=== PATIENT | male | born 1950 | race Caucasian/White ===

== ENCOUNTER 2023-03-11 14:00 | Outpatient (RCR) | payer OTHER, SELFPAY | END 2023-03-11 23:59 | disposition home or self-care (01) | LOC: RPT 14:00 | PROVIDERS: ATTENDING PHYSICIAN Psychiatry & Neurology Behavioral Neurology & Neuropsychiatry; PRIMARYCARE PHYSICIAN Physician Assistant Medical | DX: G20.C Parkinsonism, unspecified (principal); Z73.6 Limitation of activities due to disability; R26.89 Other abnormalities of gait and mobility | CPT/HCPCS: 97110; 97112; 97530 ==

== ENCOUNTER 2023-04-12 13:03 | Outpatient (RCR) | payer OTHER, SELFPAY | END 2023-04-12 23:59 | disposition home or self-care (01) | LOC: RPT 13:03 | PROVIDERS: ATTENDING PHYSICIAN Psychiatry & Neurology Behavioral Neurology & Neuropsychiatry; PRIMARYCARE PHYSICIAN Physician Assistant Medical | DX: G20.C Parkinsonism, unspecified (principal); R26.89 Other abnormalities of gait and mobility | CPT/HCPCS: 97110; 97112; 97116; 97530 ==

== ENCOUNTER 2023-05-10 13:03 | Outpatient (RCR) | payer OTHER, SELFPAY | END 2023-05-10 23:59 | disposition home or self-care (01) | LOC: RPT 13:03 | PROVIDERS: ATTENDING PHYSICIAN Psychiatry & Neurology Behavioral Neurology & Neuropsychiatry; PRIMARYCARE PHYSICIAN Physician Assistant Medical | DX: G20.C Parkinsonism, unspecified (principal); Z73.6 Limitation of activities due to disability; R26.89 Other abnormalities of gait and mobility; R26.2 Difficulty in walking, not elsewhere classified; M62.81 Muscle weakness (generalized) | CPT/HCPCS: 97110; 97112; 97116; 97530 ==

== ENCOUNTER 2023-05-27 13:54 | Outpatient (RCR) | payer OTHER, SELFPAY | END 2023-05-27 23:59 | disposition home or self-care (01) | LOC: RPT 13:54 | PROVIDERS: ATTENDING PHYSICIAN Psychiatry & Neurology Behavioral Neurology & Neuropsychiatry; PRIMARYCARE PHYSICIAN Physician Assistant Medical | DX: G20.C Parkinsonism, unspecified (principal); Z73.6 Limitation of activities due to disability; R26.89 Other abnormalities of gait and mobility | CPT/HCPCS: 97110; 97112; 97530 ==

== ENCOUNTER 2024-02-01 08:14 | Emergency (ER) | payer OTHER, SELFPAY ==
[2024-02-01 08:16] VITALS: BP 136/66
--- NOTE | 2024-02-01 09:24 | ED.GENMED ---
History of Present Illness
General
Chief Complaint: Fall
Source: patient and spouse
Exam Limitations: none
Time Seen by Provider: 02/01/24 08:32
Nursing documentation reviewed up to this point in time: agreed with
History of Present Illness
History of Present Illness:
73-year-old male past medical history of Parkinson's presenting to the emergency department after 2 mechanical falls yesterday. This was witnessed by the . He claims that he got his legs twisted up when turning fell to the ground hit his right
forehead did not lose consciousness no nausea vomiting numbness weakness no neck pain also hit his right knee and has some discomfort to his right hip region. Denies any abdominal pain chest pain shortness of breath additional concerns otherwise.
Past History
Past History
ED Past Medical History: Other (Parkinson's disease, hyperlipidemia, left knee replacement)
Social History
Tobacco: Non-smoker
Alcohol: None
Personal:
Review of Systems
Review of Systems
Allergies reviewed?: Yes
All Other Systems: ROS reviewed and negative except as documented in HPI and ROS
Phy Exam
Physical Exam
Physical Exam:
GENERAL: Alert , in no apparent distress
EYE: pupils equal and reactive normal extraocular movements
NECK: Supple, no significant adenopathy.
ENT: Superficial abrasion to the right forehead, o/p clr, mmm.
CARDIAC: Regular rate and rhythm .
LUNGS: Clear breath sounds bilaterally, no acute respiratory distress, no wheezes/rales/rhonchi
ABDOMEN: Soft, without focal tenderness, no r/g, no cvat
NEUROLOGICAL: Alert and oriented, no focal neuro deficits
SKIN: Warm and dry, skin intact.
MUSCULOSKELETAL: Slight bruising to the right anterior knee, no edema, well perfused.
PSYCH: Normal and appropriate interaction.
Course
Orders/Labs/Results
Orders:
Orders
02/01/24 09:12
CT Head W/o Iv Contrast Urgent
Comment:
Reason For Exam: fall hit right forehead
CR Knee - Right 1 Or 2 Views Urgent
Reason For Exam: right hip pain
Hip, Right 2-3 Views [CR Hip - RT w/wo Pel 2-3 Vw*] Urgent
Comment:
Reason For Exam: fall hip pain
Include a pelvis x-ray?: Yes
02/01/24 11:21
Paulie Wrap Right-Treatment ONCE
Vital Signs
Initial and Last Documented VS:
Initial Vital Signs
Temp Pulse Resp BP Pulse Ox
97.7 F 52 16 136/66 100
02/01/24 08:16 02/01/24 08:16 02/01/24 08:16 02/01/24 08:16 02/01/24 08:16
Last Documented Vital Signs
Temp Pulse Resp BP Pulse Ox
97.7 F 52 16 136/66 100
02/01/24 08:16 02/01/24 08:16 02/01/24 08:16 02/01/24 08:16 02/01/24 08:16
MDM/Problems Addressed
MDM/Problems Addressed:
73-year-old male presenting to the emergency department today with concerns of 2 falls yesterday hit his forehead right knee and right hip. Denies additional concerns. Neurovascularly intact. Vital signs normal on arrival. Here patient does have
an abrasion to his right forehead right knee and hip he has a contusion to the right buttock. He denies any specific additional concerns no numbness or weakness. Neurologically at his baseline. Vital signs here are normal. X-rays without acute
findings of the knee showed abnormalities of the patella however no specific acute pain to this area does not appear to be likely a an acute issue. Otherwise patient stable for discharge at this time return precautions given.
*Critical Care Note
Total Time (30-74mins, 75-104mins- exclusive of procedures): Not Applicable
ED Attending Note
-
Portions of this chart may have been created with voice recognition software.� Occasional wrong word or��sound alike� substitutions may have occurred due to the inherent limitations of voice recognition software.
Discharge Plan
Departure
Patient Disposition: Home (Routine Discharge)
Date of Disposition: 02/01/24
Time of Disposition: :22
Patient with high blood pressure during this ER visit?: No
Condition: Good
Covid-19: Not Applicable
Discharge Problem:
Knee sprain, Contusion of right buttock, Abrasion of forehead
Instructions: Preventing falls in adults
Prescriptions:
No Action
atorvastatin 10 MG tablet
10 mg PO HS
pramipexole [Mirapex ER] 3 MG tablet extended release 24 hr
3 mg PO HS
hydrochlorothiazide 12.5 MG capsule
12.5 mg PO DAILY
qmvjkugj-nri-IK-lycopen-lutein [Centrum Silver] 1 EACH tablet
1 ea PO DAILY
Calcium 600 + Vit D3 Tablet
1 tab PO HS
Fish Oil 1,200 mg Fish Oil
1 cap PO DAILY
Skelaxin
400 mg PO HS
sennosides [senna] 1 TABLET tablet
2 tab PO BID Qty: 0 0RF
aspirin 325 MG tablet,delayed release (DR/EC)
325 mg PO DAILY Qty: 0 0RF
docusate sodium 100 MG capsule
100 mg PO BID Qty: 0 0RF
oxycodone 5 MG tablet
1 - 2 tab PO Q4HPRN PRN (Reason: pain) Qty: 90 0RF
Rx Instructions:
tab 1 every 4h as need for mild pain
tab 2 every 4 h for mod pain
ibuprofen 200 MG tablet
200 - 400 mg PO Q6HPRN PRN (Reason: pain) Qty: 0 0RF
Rx Instructions:
DO NOT TAKE WITH ASPIRIN
Referrals:
Larisa Michel PA-C [Family Provider] -
Activity Restrictions/Additional Instructions:
You came to the emergency department today with concerns after a fall. Here you had a reassuring assessment. Please follow closely as an outpatient with the primary care doctor. Return to the emergency department for any worsening, new or
concerning symptoms.
Interventions
Interventions:
*Risk Screen - Suicide Last Done: 02/01/24 08:16
*General Assessment Last Done: 02/01/24 08:16
*ED COVID-19 Vaccine History Last Done: 02/01/24 08:16
ED-Musculoskeletal Assessment Last Done: 02/01/24 09:14
ED- Neurological Assessment Last Done: 02/01/24 09:14
ED-Skin Assessment Last Done: 02/01/24 09:14
Discharge Date and Time
Print Language: ARABIC
[2024-02-01 12:11] VITALS: BP 146/72
[2024-02-01 13:07] VITALS: BP 146/72
== END 2024-02-01 13:08 | disposition home or self-care (01) ==
LOC: EMR 08:14
PROVIDERS: EMERGENCY PHYSICIAN Emergency Medicine; FAMILY PHYSICIAN Physician Assistant Medical
DX: S83.91XA Sprain of unspecified site of right knee, initial encounter (principal); S30.0XXA Contusion of lower back and pelvis, initial encounter; S80.01XA Contusion of right knee, initial encounter; S00.81XA Abrasion of other part of head, initial encounter; S80.211A Abrasion, right knee, initial encounter; W19.XXXA Unspecified fall, initial encounter; Z91.81 History of falling; G20.A1 Parkinson's disease without dyskinesia, without mention of fluctuations; E78.5 Hyperlipidemia, unspecified; Z96.652 Presence of left artificial knee joint
CPT/HCPCS: 99284; 70450; 73502; 73560